=== PATIENT | male | born 1985 | race Two or more races ===

== ENCOUNTER → 2024-10-27 | Outpatient (CLI) | payer MEDICAID, SELFPAY ==
--- NOTE | 2024-10-27 11:15 | XR_ITS ---
Examination: Breast ultrasound, unilateral, right complete Date and time of exam: October 27, 2024 1136 hours INDICATIONS: Lump in the right nipple region noticed beginning 4 months ago Technique: Real-time matthews scale ultrasonographic imaging performed right breast including all 4 quadrants as well as nipple retroareolar and axillary region. Findings: 2 x 2 x 3 mm retroareolar cyst No solid nodules IMPRESSION: BI-RADS Category 2: Benign findings
== END | disposition home or self-care (01) ==
DX: N64.59 Other signs and symptoms in breast (principal)
CPT/HCPCS: 76641

== ENCOUNTER 2025-02-07 10:26 | Outpatient (AMB) | payer MEDICAID, SELFPAY ==
--- NOTE | 2025-02-07 10:57 | GSCOFFNT_ITS ---
Vital Signs - [facility] 02/07/25 10:58 Height 1.78 m Height Method Measured Weight 125.73 kg Weight Measurement Method Standing Scale BMI 39.6 BP 132/96 H Blood Pressure Source Automatic Cuff Blood Pressure Location Left Upper Arm Position Sitting Respiration 18 Pulse 76 Pulse Source Monitor Temp 97.2 F Temp Source Temporal Artery Scan Pulse Oximetry (%) 96 Oxygen Delivery Method Room Air Med/Allergies Allergies & Medications Allergies No Known Allergies Allergy (Verified 02/07/25 10:58) Medication Reconciliation acetaminophen 300 mg-codeine 30 mg tablet 1 tab PO Q6H PRN pain #15 tabs 04/01/21 [Rx Confirmed 02/07/25] ibuprofen 800 mg tablet 800 mg PO TID PRN pain #30 tabs 04/01/21 [Rx Confirmed 02/07/25] ondansetron 4 mg disintegrating tablet 4 mg PO Q6H PRN nausea and vomiting #10 tabs 04/01/21 [Rx Confirmed 02/07/25] tamsulosin 0.4 mg capsule (Flomax) 0.4 mg PO QDAY #7 caps 04/01/21 [Rx Confirmed 02/07/25] diazepam 5 mg tablet (Valium) 5 mg PO BID PRN muscle spasm #4 tabs 02/27/23 [Rx Confirmed 02/07/25] ibuprofen 600 mg tablet (IBU) 600 mg PO TID PRN pain #30 tabs 02/27/23 [Rx Confirmed 02/07/25] hydrocodone 5 mg-acetaminophen 325 mg tablet 1 tab PO BID PRN pain #10 tabs 12/22/23 [Rx Confirmed 02/07/25] ibuprofen 800 mg tablet 800 mg PO TID PRN pain #30 tabs 12/22/23 [Rx Confirmed 02/07/25] MA Intake Visit Data Collection New Patient or Established: Established Patient (seen at [facility] within 3 years) Seen by Clinical Staff ONLY (RN/MA): No Pain Present Currently: Yes Pain scale:: 7 Pain Scale Used: SofiaTerranceJacobo/Numerical [employer] Location Manager Required: No PCP or OBGYN visit in last 3 months: Yes Hx Now: No Do You Feel Safe at Home: Yes Authorities Contacted: N/A Smoking Status Smoking Status: Never smoker Immunization / Flu Flu Vaccine in the Last 12 Months: No Flu Vaccine Exclusion Criteria: No Exclusion Criteria Past Medical History Past Medical History RESPIRATORY: Positive Asthma Social History SMOKING STATUS: Smoking status: Never smoker ALCOHOL: Alcohol Intake: Never HPI HPI Narrative 39M presenting with perianal pain and drainage. Pt reports for the past 1.5 years he has noted pain to the left perianal region as well as drainage which oc curs almost daily. The drainage tends to be pus/blood and he most recently had drainage yesterday. He does have occasions when there is no drainage but there is swelling to the area and it feels painful. Pt states he does have straining usually and does not drink much water or take fiber. Pt underwent colonoscopy 01/19/[address] Goel with findings of a 5mm tubular adenoma in the rectum as well as diverticulosis and internal hemorrhoids, was recommended to repeat colonoscopy in 3-5 years Pt has not tried any remedies to the area and is not aware of any inciting factor PMH: Denies PSHx: Hernia repair as a child Meds: No antiplt or anticoagulation Allergies: NKDA Family hx: grandfather was treated for colon CA Social hx: Nonsmoker ROS Review of Systems Systems Reviewed: All systems reviewed, normal except as documented Objective/Exam General General Appearance: alert, cooperative and well groomed Resp Respiratory exam: Absent respiratory distress Rectal Rectal exam: Present normal rectal tone and other (external opening to perianal fistula at the left anterior perianal region approx 2cm from verge, no active drainage with palpation of anus) Results Colonoscopy report reviewed Assessment & Plan Diagnosis / Problem List (1) Perianal fistula: Status: Acute Assessment & Plan: 39M presenting with signs and symptoms of a perianal fistula. I explained that surgical treatment is undertaken in two steps, first with seton placement to allow drainage and promote healing of the fistula, followed by either fistulotomy or ligation of fistula tract once the drainage significantly decreases. I explained risks of surgery including bleeding, infection, fecal incontinence as well as recurrence/persistence of the fistula requiring further procedures. All questions were answered and pt is agreeable to proceeding Plan: EUA with seton placement YECENIA Office Procedures GNS Level of Care Nursing/Assessment Patient Status: Established Patient Nursing Assessment/Reassesment: Medication Reconciliation, Update PMH in EMR and Vital Signs Coordination of Care: Complex Care and Chronic Disease 1-5, Consent,records obtained, informed consent, Education Simp Pt/Fam, Results/Orders obtained and Staff clarify orders Established Patient Charge Established Patient Point Assignment: 90 Established Patient Point Charge: EP Level 3 (80-115) Patient Portal Questionaires Social History Tobacco History Smoking Status: Never smoker Alcohol History Alcohol Intake: Never Domestic Abuse History Do You Feel Safe at Home: Yes Review of Systems Report any current symptoms Only answer those that you have currently: Past Medical History Past Medical History Have you ever been diagnosed with any of the following: Respiratory Problems Asthma: Yes
[2025-02-07 10:58] VITALS: BP 132/96; PULSE 76; RESP 18; TEMP 36.2; O2SAT 96; BMI 39.6
== END 2025-02-07 11:58 | disposition home or self-care (01) ==
LOC: HODSRG 10:26
PROVIDERS: Supervising Provider Surgery; Visit Provider Surgery
DX: K60.30 Anal fistula, unspecified (principal)
CPT/HCPCS: 99213; G0463

== ENCOUNTER 2025-03-02 05:40 | Day surgery (SDC) | payer MEDICAID, SELFPAY ==
[2025-03-01 07:34] VITALS: BMI 41.1
[2025-03-01 08:57] LABS: Basophils # (Auto) 0.0 Thou/mm3 (0.0-0.2); Basophils % (Auto) 0 % (0-2.5); Eosinophils # (Auto) 0.1 Thou/mm3 (0.0-0.5); Eosinophils % (Auto) 1 % (0-10); Hematocrit 48.5 % (41.0-53.0); Hemoglobin 16.1 g/dL (13.5-16.0); Immature Granulocytes Auto 0.05 Thou/mm3 (0.00-0.00); Lymphocytes # (Auto) 1.1 Thou/mm3 (1.0-4.8); Lymphocytes % (Auto) 12 % (10-50); Mean Corpuscular HGB Conc 33.2 g/dl (31.0-37.0); Mean Corpuscular Hemoglobin 28.9 pg (25.0-35.0); Mean Corpuscular Volume 87 fL (80-100); Monocytes # (Auto) 0.5 Thou/mm3 (0.0-0.8); Monocytes % (Auto) 5 % (0-12); Neutrophils # (Auto) 7.6 Thou/mm3 (1.8-7.7); Neutrophils % (Auto) 81 % (37-80); Nucleated Red Blood Cell # 0.00 Thou/mm3 (0.00-0.00); Nucleated Red Blood Cell % 0 /100 WBC (0); Platelet Count 210 Thou/mm3 (140-440); RDW Standard Deviation 40.8 fL (35.1-43.9); Red Blood Count 5.57 Miln/mm3 (4.50-5.90); White Blood Count 9.3 Thou/mm3 (3.8-10.6)
[2025-03-01 09:11] LABS: Anion Gap 11 (7-16); BUN/Creatinine Ratio 14 Ratio (12-20); Blood Urea Nitrogen 13 mg/dL (9-23); Calcium 9.6 mg/dL (8.3-10.6); Carbon Dioxide 29.0 mMol/L (20.0-31.0); Chloride 100 mMol/L (98-107); Creatinine (Component) 0.9 mg/dL (0.6-1.3); Estimated Creatinine Clearance 147.8 mL/min (>60); Glucose 114 mg/dL (74-106); Osmolality,Calculated 280 (275-295); Potassium 4.1 mMol/L (3.4-5.1); Sodium 140 mMol/L (136-145); eGFR > 60 See Note
[2025-03-01 09:18] LABS: INR 1.1 (0.9-1.3); Partial Thromboplastin Time 26.5 Seconds (22.0-36.0); Prothrombin Time 11.6 Seconds (9.0-12.2)
[2025-03-02] VITALS (8 sets, daily range): BP systolic 98–134; BP diastolic 61–83; PULSE 72–84; RESP 12–20; TEMP 36.2–36.4; O2SAT 95–98; BMI 41.3
--- NOTE | 2025-03-02 08:03 | ESOP_ITS ---
Date of Procedure 03/02/25 Pre Op Diagnosis Perianal fistula Post Op Diagnosis Same Procedure Examination under anesthesia, placement of seton Findings Left perianal fistula with external opening approximately 2 cm from anal verge Procedure Description After discussion of risks and benefits, patient was brought to the operating room, SCDs were placed and general anesthesia was induced. He was placed in the lithotomy position with proper padding and was prepped and draped in the usual sterile fashion. After timeout a PENG was performed which was normal. A lubricated Calhoun retractor was placed into the anal canal and the internal opening of the perianal fistula was visible at the left anus. The external opening was noted approximately 2 cm from the anal verge. Fistula probe was placed through the external opening and through the internal opening. A 0 silk tie was tied to the internal portion of the probe and a vessel loop acting as a seton was then tied to the silk tie. The fistula probe was removed from the tract and brought along with it the silk tie and followed by the vessel loop. The vessel loop was then tied to itself using three interrupted 0 silk ties. The excess vessel loop was trimmed off. A left pudendal nerve block was performed as well as a local block for a total of 20 cc of half percent Marcaine. Patient was returned to supine position and extubated without complication. He was brought to PACU in stable condition Pathology / specimen None Estimated Blood Loss 10 Surgeon Marleen Maldonado MD Surgical Staff Operation Date: 03/02/25 07:45 Case Staff ASPHALT ENGINEER: Son Kc
--- NOTE | 2025-03-02 08:06 | ESDS_ITS ---
Planned Discharge Date 03/02/25 DS: Providers Provider Primary care physician: DONNIE Garza Attending Provider on Admission: Marleen Maldonado MD Attending Provider on DC: Marleen Maldonado MD Discharging Provider: Marleen Maldonado MD Diagnosis Discharge Diagnosis (1) Perianal fistula: Status: Acute Problem List Completed Was Problem List Reviewed/Reconciled?: Yes Exam Vital Signs Temp Pulse Resp BP Pulse Ox 97.1 F 72 16 114/83 96 03/02/25 06:13 03/02/25 06:13 03/02/25 06:13 03/02/25 06:13 03/02/25 06:13 Discharge Plan Plan Patient Disposition: HOME (Self Care) Prescriptions/Referrals Prescriptions/Med Rec: New oxycodone-acetaminophen [Percocet] 5-325 mg tablet 1 tab PO Q4H MDD 6 tabs PRN (Reason: pain) Qty: 30 0RF Rx Instructions: Take 1 tablet every 4-6 hours as needed for moderate to severe pain docusate sodium [Colace] 100 mg capsule 100 mg PO QDAY PRN (Reason: constipation) Qty: 30 0RF Rx Instructions: Take 1 tablet daily as needed for constipation No Action ibuprofen [IBU] 600 mg tablet 600 mg PO TID PRN (Reason: pain) Qty: 30 0RF Referrals: Catalina Mckinnon FNP-C [Primary Care Provider] - Marleen Maldonado MD [Physician] - (You will receive a phone call to confirm a follow-up appointment with me in 6 weeks) Patient/Caregiver Discharge Instructions Other Discharge Activity Instructions:: You may resume sitz baths as needed for pain, swelling and drainage starting tomorrow 03/03 Avoid constipation and diarrhea Percocet can cause constipation so please make sure to drink plenty of water, take fiber and use Colace as needed You may take ibuprofen in between doses of Percocet or instead of Percocet for mild to moderate pain If you develop pain not controlled by medications, fever, difficulty urinating please seek care in ER Education Materials: Eating a High-Fiber Diet, Taking a Sitz Bath Print Language: Japanese Stand Alone Forms: Akiko Award Info., Patient Portal Info Letter Discharge Order Discharge Orders: Discharge (Routine); Ordered 03/02/25 Ordered By: Marleen Maldonado Results Results: Laboratory Laboratory results: results reviewed PROCEDURES: Procedure Date 03/02/25 Procedures Examination under anesthesia, placement of seton
--- NOTE | 2025-03-02 08:08 | SUR.PHASEI ---
0808: Pt. arrived with LMA in place, vitals stable, breathing unlabored, no signs of distress, dressing to rectum has scant amount of blood, report received from Cordell YA and Dara RN.
--- NOTE | 2025-03-02 09:10 | SUR.PHASEII ---
0910: Pt. AAOx4, vitals stable, breathing unlabored, no complaint of pain or nausea, dressing to rectum has scant amount of drainage, pt. tolerated sips of water well, pt. ambulated to wheelchair with steady gait and no assist, no complications. Gave discharge instructions to the pt. and his ride, both verbalized understanding and had no further questions. Pt. left with all personal belongings.
== END 2025-03-02 09:10 | disposition home or self-care (01) ==
PROVIDERS: Referring Provider Surgery; Visit Provider Surgery
PROC: (CPT 46020; principal; 2025-03-02 07:30)
DX: K60.30 Anal fistula, unspecified (principal)
CPT/HCPCS: 46020; 36415; 80048; 85025; 85610; 85730; A4217; A4649; J1100; J1885; J2250; J2405; J2704; J3010; J3490

== ENCOUNTER 2025-04-11 09:08 | Outpatient (AMB) | payer MEDICAID, SELFPAY ==
[2025-04-11 09:28] VITALS: BP 132/92; PULSE 83; RESP 20; TEMP 36.5; O2SAT 96; BMI 40.2
--- NOTE | 2025-04-11 09:28 | GSCOFFNT_ITS ---
Vital Signs - [facility] 04/11/25 09:28 Height 1.78 m Height Method Measured Weight 127.176 kg Weight Measurement Method Standing Scale BMI 40.2 BP 132/92 H Blood Pressure Source Automatic Cuff Blood Pressure Location Left Upper Arm Position Sitting Respiration 20 Pulse 83 Pulse Source Monitor Temp 97.7 F Temp Source Temporal Artery Scan Pulse Oximetry (%) 96 Oxygen Delivery Method Room Air Med/Allergies Allergies & Medications Allergies No Known Allergies Allergy (Verified 04/11/25 09:30) Medication Reconciliation ibuprofen 600 mg tablet (IBU) 600 mg PO TID PRN pain #30 tabs 02/27/23 [Rx Confirmed 04/11/25] docusate sodium 100 mg capsule (Colace) 100 mg PO QDAY PRN constipation #30 caps 03/02/25 [Rx Confirmed 04/11/25] oxycodone-acetaminophen 5 mg-325 mg tablet (Percocet) 1 tab PO Q4H PRN pain #30 tabs 03/02/25 [Rx Confirmed 04/11/25] oxycodone-acetaminophen 5 mg-325 mg tablet (Percocet) 1 tab PO Q6H PRN pain #30 tabs 04/11/25 [Rx] MA Intake Visit Data Collection New Patient or Established: Established Patient (seen at [facility] [place] within 3 years) Seen by Clinical Staff ONLY (RN/MA): No Reason for Visit:: POST OP Pain Present Currently: Yes Pain scale:: 4 Pain Scale Used: Sofia-Jacobo/Numerical Video Library Assistant Required: No PCP or OBGYN visit in last 3 months: Yes Hx Now: No Do You Feel Safe at Home: Yes Authorities Contacted: N/A Smoking Status Smoking Status: Never smoker Immunization / Flu Flu Vaccine in the Last 12 Months: No Flu Vaccine Exclusion Criteria: Refused by Patient Past Medical History Past Medical History NEUROLOGIC: Negative Neurological Disorders or Seizures CARDIAC: Negative Cardiac Disorders or Congestive Heart Failure RESPIRATORY: Positive Asthma; Negative Chronic Obstructive Pulmonary Disease (COPD) GASTROINTESTINAL: Positive Gastrointestinal Disorders and Obesity GENITOURINARY: Negative Genitourinary Disorders or Renal Disease ENDOCRINE: Negative Endocrine Disorders, Diabetes Mellitus Type 1 or Diabetes Mellitus Type 2 HEMATOLOGIC: Negative Blood Disorders PSYCHO/SOCIAL: Positive Anxiety OTHER HISTORY: Positive Hospitalization and Chicken Pox; Negative Autoimmune Disease, Shingles, Blood Transfusions, Blood Transfusion Reaction, Anesthesia Reactions or Cancer Family History FAMILY HISTORY: Positive Family Cancer; Negative Family Psychiatric Problems, Family Respiratory Disorders, Family Cardiac Disorders, Family Gastrointestinal Problems, Family Surgery or Family Anesthesia Reaction Social History SMOKING STATUS: Smoking status: Never smoker ALCOHOL: Alcohol Intake: Never HOUSING: Housing: House [facility] HPI Narrative HISTORY OF PRESENT ILLNESS I, Marleen Maldonado, have obtained verbal consent from the patient, to be re corded during this encounter which may include, but not limited to, medical history, examination, treatment plans, and relevant health information.? Patient was informed that recording will be read and reviewed by myself before inclusion in the medical chart. The patient is here for a fistula follow-up. He reports persistent discomfort, describing the pain as sharp during movement and less intense when stationary. He experienced significant pain post-surgery, which was managed with medication. However, he expresses concern about potential addiction to painkillers due to a family history of addiction. He has been taking ibuprofen 600 mg as needed for pain relief. He also mentions the presence of pus-like discharge from the incision site on his buttock, which appears swollen. His notes that the drainage has improved, although there was a recent flare-up. He has noticed a correlation between dairy consumption and increased drainage. His bowel movements are generally soft, but become more solid after consuming red meat, requiring him to massage the area to facilitate bowel movement. He has been incorporating more greens and fibers into his diet and takes vitamin supplements. He is unable to sit for extended periods, which has affected his ability to work. He has not been using sitz baths for pain management, but instead takes regular baths. He last took his prescribed pain m edication two days ago. He has been using women's pads for padding and is seeking advice on the best type of padding to use. ROS Review of Systems Systems Reviewed: All systems reviewed, normal except as documented Objective/Exam General General Appearance: alert, cooperative and well groomed Resp Respiratory exam: Absent respiratory distress Rectal Rectal exam: Present other (Left perianal seton in place with no surrounding erythema, the external opening is approximately 2 cm from the anal verge and there is a slightly raised area just lateral to this where the external opening originally) Assessment & Plan Diagnosis / Problem List (1) Perianal fistula: Status: Acute Assessment & Plan: The presence of drainage is expected and is one of the objectives of the drain. The seton is functioning as intended, pulling towards the anus. The second surgery will be scheduled once there is a significant reduction in drainage. He was advised to consume 35 g of fiber daily and to increase water intake to 2 liters per day. Sitz baths with Epsom salt were recommended for comfort. Abdominal pads were given for use as needed. He was informed that he would need to take at least 3-4 months off work, with a follow-up appointment in 6 weeks. Follow-up A follow-up appointment is scheduled for 6 weeks from now. Office Procedures GNS Level of Care Nursing/Assessment Patient Status: Established Patient Nursing Assessment/Reassesment: Medication Reconciliation, Update PMH in EMR and Vital Signs Coordination of Care: Complex Care and Chronic Disease 1-5, Consent,records obtained, informed consent, Education Simp Pt/Fam, Results/Orders obtained and Staff clarify orders Established Patient Charge Established Patient Point Assignment: 90 Established Patient Point Charge: EP Level 3 (80-115) Patient Portal Questionaires Social History Living Situation History Housing: House Tobacco History Smoking Status: Never smoker Alcohol History Alcohol Intake: Never Domestic Abuse History Do You Feel Safe at Home: Yes Review of Systems Report any current symptoms Only answer those that you have currently: Past Medical History Past Medical History Have you ever been diagnosed with any of the following: Neurological Problems Seizures: No Cardiology Problems Congestive Heart Failure: No Respiratory Problems Chronic Obstructive Pulmonary Disease (COPD): No Asthma: Yes Stomache/Intestinal Problems Obesity: Yes Genital/Urinary Problems Renal Disease: No Endocrine Problems Diabetes Mellitus Type 1: No Diabetes Mellitus Type 2: No Psychologic Problems Anxiety: Yes Other Problems Hospitalization: Yes Autoimmune Disease: No Shingles: No Blood Transfusions: No Blood Transfusion Reaction: No Anesthesia Reactions: No Chicken Pox: Yes Cancer: No
== END 2025-04-11 10:26 | disposition home or self-care (01) ==
PROVIDERS: Supervising Provider Surgery; Visit Provider Surgery
DX: K60.30 Anal fistula, unspecified (principal); E66.9 Obesity, unspecified; Z68.41 Body mass index [BMI] 40.0-44.9, adult
CPT/HCPCS: 99213; G0463

== ENCOUNTER 2025-05-23 09:09 | Outpatient (AMB) | payer MEDICAID, SELFPAY ==
[2025-05-23 09:16] VITALS: BP 124/89; PULSE 79; RESP 18; TEMP 36.4; O2SAT 96; BMI 39.4
--- NOTE | 2025-05-23 09:16 | GSCOFFNT_ITS ---
Vital Signs - [facility] 05/23/25 09:16 Height 1.78 m Height Method Measured Weight 124.993 kg Weight Measurement Method Standing Scale BMI 39.4 BP 124/89 H Blood Pressure Source Automatic Cuff Blood Pressure Location Left Upper Arm Position Sitting Respiration 18 Pulse 79 Pulse Source Monitor Temp 97.6 F Temp Source Temporal Artery Scan Pulse Oximetry (%) 96 Oxygen Delivery Method Room Air Med/Allergies Allergies & Medications Allergies No Known Allergies Allergy (Verified 05/23/25 09:17) Medication Reconciliation ibuprofen 600 mg tablet (IBU) 600 mg PO TID PRN pain #30 tabs 02/27/23 [Rx Confirmed 05/23/25] docusate sodium 100 mg capsule (Colace) 100 mg PO QDAY PRN constipation #30 caps 03/02/25 [Rx Confirmed 05/23/25] oxycodone-acetaminophen 5 mg-325 mg tablet (Percocet) 1 tab PO Q4H PRN pain #30 tabs 03/02/25 [Rx Confirmed 05/23/25] oxycodone-acetaminophen 5 mg-325 mg tablet (Percocet) 1 tab PO Q6H PRN pain #30 tabs 04/11/25 [Rx Confirmed 05/23/25] tramadol 50 mg tablet 50 mg PO Q8H PRN pain #60 tabs 05/23/25 [Rx] MA Intake Visit Data Collection New Patient or Established: Established Patient (seen at [facility] within 3 years) Seen by Clinical Staff ONLY (RN/MA): No Reason for Visit:: 6 WEEK F/U Pain Present Currently: Yes Pain scale:: 7 Pain Scale Used: Sofia-Jacobo/Numerical Speaker Mounter Required: No PCP or OBGYN visit in last 3 months: Yes Hx Now: No Do You Feel Safe at Home: Yes Authorities Contacted: N/A Smoking Status Smoking Status: Never smoker Immunization / Flu Flu Vaccine in the Last 12 Months: Yes Flu Vaccine Exclusion Criteria: Already Received Past Medical History Past Medical History NEUROLOGIC: Negative Neurological Disorders or Seizures CARDIAC: Negative Cardiac Disorders or Congestive Heart Failure RESPIRATORY: Positive Asthma; Negative Chronic Obstructive Pulmonary Disease (COPD) GASTROINTESTINAL: Positive Gastrointestinal Disorders and Obesity GENITOURINARY: Negative Genitourinary Disorders or Renal Disease ENDOCRINE: Negative Endocrine Disorders, Diabetes Mellitus Type 1 or Diabetes Mellitus Type 2 HEMATOLOGIC: Negative Blood Disorders PSYCHO/SOCIAL: Positive Anxiety OTHER HISTORY: Positive Hospitalization and Chicken Pox; Negative Autoimmune Disease, Shingles, Blood Transfusions, Blood Transfusion Latricia ction, Anesthesia Reactions or Cancer Family History FAMILY HISTORY: Positive Family Cancer; Negative Family Psychiatric Problems, Family Respiratory Disorders, Family Cardiac Disorders, Family Gastrointestinal Problems, Family Surgery or Family Anesthesia Reaction OTHER FAMILY HX: Grandfather: colon cancer Surgical History OTHER SURGICAL HX: Other surgical history: Seton placement for perianal fistula Social History SMOKING STATUS: Smoking status: Never smoker ALCOHOL: Alcohol Intake: Never HOUSING: Housing: House HPI HPI Narrative I, Marleen Kwmaverick, have obtained verbal consent from the patient, to be recorded during this encounter which may include, but not limited to, medical history, examination, treatment plans, and relevant health information.? Patient was informed that recording will be read and reviewed by myself before inclusion in the medical chart. The patient is a 39 yo male who presents for a follow-up of a fistula. His last consultation was approximately 6 weeks ago. He reports persistent discomfort, which he manages with a daily dose of Percocet, supplemented by Tylenol or ibuprofen as needed. He has exhausted his supply of Percocet but would like a prescription of a less strong drug. The frequency of drainage has decreased to about 50% of the original amount, although prolonged sitting results in increased drainage with minor bleeding. He rates his pain at 4 or 5 out of 10, a significant improvement from prior levels. He has been using a donut pillow to alleviate pressure on the wound, and sitz baths which has been beneficial. He has not experienced any recent constipation and has been taking fiber powder, which has improved his bowel movements. He maintains a dairy-free diet due to suspected intolerance. He reports no recent fevers but has had a cough and cold symptoms. Denies bowel changes, fevers, chills, unexpected weight changes, or pencil thin stools. Patient admits to fatigue but attributes that to recovering from cold symptoms last week. ROS Review of Systems Systems Reviewed: All systems reviewed, normal except as documented Objective/Exam General Limitations: no limitations General Appearance: alert, in no apparent distress, comfortable and cooperative Rectal Rectal exam: Present other (Left perianal fistula with seton visualized, no erythema, no fluctuance or tenderness) Assessment & Plan Diagnosis / Problem List (1) Perianal fistula: Status: Acute Assessment & Plan: 39M here for follow-up for seton placement on 03/02/25. He is improving, with a reported 50% reduction in drainage over the past few weeks. Will continue to monitor for further decrease in drainage before proceeding with definitive surgery. All questions were answered and pt is agreeable with this plan Plan: Tramadol PRN F/u in 6 weeks Office Procedures GNS Level of Care Nursing/Assessment Patient Status: Established Patient Nursing Assessment/Reassesment: Medication Reconciliation, Update PMH in EMR and Vital Signs Coordination of Care: Complex Care and Chronic Disease 1-5, Education Complex Pt/Fam, Consent,records obtained, informed consent, Results/Orders obtained and Staff clarify orders Established Patient Charge Established Patient Point Assignment: 95 Established Patient Point Charge: EP Level 3 (80-115) Patient Portal Questionaires Social History Living Situation History Housing: House Tobacco History Smoking Status: Never smoker Alcohol History Alcohol Intake: Never Domestic Abuse History Do You Feel Safe at Home: Yes Review of Systems Report any current symptoms Only answer those that you have currently: Past Medical History Past Medical History Have you ever been diagnosed with any of the following: Neurological Problems Seizures: No Cardiology Problems Congestive Heart Failure: No Respiratory Problems Chronic Obstructive Pulmonary Disease (COPD): No Asthma: Yes Stomache/Intestinal Problems Obesity: Yes Genital/Urinary Problems Renal Disease: No Endocrine Problems Diabetes Mellitus Type 1: No Diabetes Mellitus Type 2: No Psychologic Problems Anxiety: Yes Other Problems Hospitalization: Yes Autoimmune Disease: No Shingles: No Blood Transfusions: No Blood Transfusion Reaction: No Anesthesia Reactions: No Chicken Pox: Yes Cancer: No
== END 2025-05-23 09:53 | disposition home or self-care (01) ==
LOC: HODSRG 09:09
PROVIDERS: Supervising Provider Surgery; Visit Provider Surgery
DX: K60.30 Anal fistula, unspecified (principal)
CPT/HCPCS: 99213; G0463

== ENCOUNTER 2025-07-04 09:27 | Outpatient (AMB) | payer MEDICAID, SELFPAY ==
[2025-07-04 09:40] VITALS: BP 128/82; PULSE 81; RESP 18; TEMP 36.6; O2SAT 95; BMI 39.6
--- NOTE | 2025-07-04 09:40 | PD.GSCLVISIT ---
Vital Signs - [facility] 07/04/25 09:40 Height 1.78 m Height Method Measured Weight 125.673 kg Weight Measurement Method Standing Scale BMI 39.6 BP 128/82 Blood Pressure Source Automatic Cuff Blood Pressure Location Left Upper Arm Position Sitting Respiration 18 Pulse 81 Pulse Source Monitor Temp 97.8 F Temp Source Temporal Artery Scan Pulse Oximetry (%) 95 Oxygen Delivery Method Room Air Med/Allergies Allergies & Medications Allergies No Known Allergies Allergy (Verified 07/04/25 09:42) Medication Reconciliation ibuprofen 600 mg tablet (IBU) 600 mg PO TID PRN pain #30 tabs 02/27/23 [Rx Confirmed 07/04/25] docusate sodium 100 mg capsule (Colace) 100 mg PO QDAY PRN constipation #30 caps 03/02/25 [Rx Confirmed 07/04/25] oxycodone-acetaminophen 5 mg-325 mg tablet (Percocet) 1 tab PO Q4H PRN pain #30 tabs 03/02/25 [Rx Confirmed 07/04/25] oxycodone-acetaminophen 5 mg-325 mg tablet (Percocet) 1 tab PO Q6H PRN pain #30 tabs 04/11/25 [Rx Confirmed 07/04/25] tramadol 50 mg tablet 50 mg PO Q8H PRN pain #60 tabs 07/04/25 [Rx] MA Intake Visit Data Collection New Patient or Established: Established Patient (seen at [facility] within 3 years) Seen by Clinical Staff ONLY (RN/MA): No Reason for Visit:: 6 WEEK F/U Pain Present Currently: Yes Pain scale:: 6 Pain Scale Used: Sofia-Jacobo/Numerical Protocol Manager Required: No PCP or OBGYN visit in last 3 months: Yes Hx Now: No Do You Feel Safe at Home: Yes Authorities Contacted: N/A Smoking Status Smoking Status: Never smoker Immunization / Flu Flu Vaccine in the Last 12 Months: Yes Flu Vaccine Exclusion Criteria: Already Received Past Medical History Past Medical History NEUROLOGIC: Negative Neurological Disorders or Seizures CARDIAC: Negative Cardiac Disorders or Congestive Heart Failure RESPIRATORY: Positive Asthma; Negative Chronic Obstructive Pulmonary Disease (COPD) GASTROINTESTINAL: Positive Gastrointestinal Disorders and Obesity GENITOURINARY: Negative Genitourinary Disorders or Renal Disease ENDOCRINE: Negative Endocrine Disorders, Diabetes Mellitus Type 1 or Diabetes Mellitus Type 2 HEMATOLOGIC: Negative Blood Disorders PSYCHO/SOCIAL: Positive Anxiety OTHER HISTORY: Positive Hospitalization and Chicken Pox; Negative Autoimmune Disease, Shingles, Blood Transfusions, Blood Transfusion Reaction, Anesthesia Reactions or Cancer Family History FAMILY HISTORY: Positive Family Cancer; Negative Family Psychiatric Problems, Family Respiratory Disorders, Family Cardiac Disorders, Family Gastrointestinal Problems, Family Surgery or Family Anesthesia Reaction Social History SMOKING STATUS: Smoking status: Never smoker ALCOHOL: Alcohol Intake: Never HOUSING: Housing: House HPI HPI Narrative 39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 Pt reports feeling well overall, with little to no pain and less drainage compared to prior visit. His BMs remain soft and regular and he is taking baths which help with the occasional discomfort. He has also completely removed dairy from his diet. 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 As such I recommended scheduling him for definitive surgery which will mean ligation of intersphincteric tract. I explained risks of pain, persistent/recurrent drainage and incontinence which I would expect to be temporary. All questions were answered and pt is agreeable to proceeding Plan: Will schedule for ligation of intersphincteric fistula tract [facility] Office Procedures GNS Level of Care Nursing/Assessment Patient Status: Established Patient Nursing Assessment/Reassesment: Medication Reconciliation, Update PMH in EMR and Vital Signs Coordination of Care: Complex Care and Chronic Disease 1-5, Education Complex Pt/Fam, Consent,records obtained, informed consent, Results/Orders obtained and Staff clarify orders Established Patient Charge Established Patient Point Assignment: 95 Established Patient Point Charge: EP Level 3 (80-115) Patient Portal Questionaires Social History Living Situation History Housing: House Tobacco History Smoking Status: Never smoker Alcohol History Alcohol Intake: Never Domestic Abuse History Do You Feel Safe at Home: Yes Review of Systems Report any current symptoms Only answer those that you have currently: Past Medical History Past Medical History Have you ever been diagnosed with any of the following: Neurological Problems Seizures: No Cardiology Problems Congestive Heart Failure: No Respiratory Problems Chronic Obstructive Pulmonary Disease (COPD): No Asthma: Yes Stomache/Intestinal Problems Obesity: Yes Genital/Urinary Problems Renal Disease: No Endocrine Problems Diabetes Mellitus Type 1: No Diabetes Mellitus Type 2: No Psychologic Problems Anxiety: Yes Other Problems Hospitalization: Yes Autoimmune Disease: No Shingles: No Blood Transfusions: No Blood Transfusion Reaction: No Anesthesia Reactions: No Chicken Pox: Yes Cancer: No
== END 2025-07-04 10:00 | disposition home or self-care (01) ==
LOC: HODSRG 09:27
PROVIDERS: Supervising Provider Surgery; Visit Provider Surgery
DX: K60.30 Anal fistula, unspecified (principal)
CPT/HCPCS: 99213; G0463